=== PATIENT | female | born 1970 | race American Indian/Alaskan Native ===

== ENCOUNTER 2018-11-16 01:57 | Emergency (ER) | payer OTHER ==
[2018-11-16 02:04] VITALS: BP 170/99
[2018-11-16] MEDS ORDERED: IBUPROFEN PO ONE (08:15)
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
== END 2018-11-16 11:15 | disposition home or self-care (01) ==
LOC: ED 01:57
DX: M50.30 Other cervical disc degeneration, unspecified cervical region (principal); V89.2XXA Person injured in unspecified motor-vehicle accident, traffic, initial encounter; Y93.89 Activity, other specified; Y92.488 Other paved roadways as the place of occurrence of the external cause; Y99.8 Other external cause status
CPT/HCPCS: 72040; 72114; 99283

== ENCOUNTER 2020-08-01 23:16 | Emergency (ER) | payer BC, MEDICARE ==
[2020-08-02 05:16] VITALS: BP 161/80
--- NOTE | 2020-08-02 05:27 | Event Note ---
ED Screening Note Date of service: 08/02/20 Time: 05:26 ED Screening Note: Patient presents with complaints of intermittent chest pain and elevated blood pressure x6 days. 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 Further treatment and workup at subsequent clinical providers discretion. Patient/guardian urged not to elope from the ED as their condition may be serious if not clinically assessed and managed. Initial orders include: Chest pain work-up-EKG, chest x-ray, labs
[2020-08-02 06:10] LABS: Basophils % (Auto) 0.6 % (0.0-1.8); Eosinophils # (Auto) 0.4 K/mm3 (0.0-0.4); Eosinophils % (Auto) 9.5 % (0.0-4.3); Hematocrit 36.6 % (30.3-42.9); Hemoglobin 12.9 gm/dl (10.1-14.3); Lymphocytes # (Auto) 1.9 K/mm3 (1.2-5.4); Lymphocytes % (Auto) 45.2 % (13.4-35.0); Mean Corpuscular HGB Conc 35 % (30-34); Mean Corpuscular Volume 94 fl (79-97); Monocytes # (Auto) 0.4 K/mm3 (0.0-0.8); Monocytes % (Auto) 8.4 % (0.0-7.3); Platelet Count 233 K/mm3 (140-440); Red Cell Distribution Width 11.9 % (13.2-15.2)
--- NOTE | 2020-08-02 06:11 | XRay Report ---
CHEST 2 VIEWS, 08/02/2020 4:57 AM INDICATION: Chest pain COMPARISON: None FINDINGS: Support devices: None. Heart: The cardiac silhouette is normal in size. Lungs/pleura: The lungs are clear of focal airspace disease or significant pleural effusion. Additional findings: No significant acute abnormality. IMPRESSION: 1. No evidence of acute cardiopulmonary process. Signer Name: Angelica Hennessy MD Signed: 08/02/2020 6:07 AM Workstation Name: [id number]
[2020-08-02 06:30] LABS: Alanine Aminotransferase 12 units/L (7-56); Blood Urea Nitrogen 15 mg/dL (7-17); Calcium 9.3 mg/dL (8.4-10.2); Hemolysis Index 5
[2020-08-02 06:51] LABS: BUN/Creatinine Ratio 25
--- NOTE | 2020-08-02 07:27 | Emergency Department Report ---
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 She states that she was told she had a whole hallway of 30 patients alone, this made her upset, her blood pressure went up and her research project manager sent her to the ER. She denies headache, chest pain, shortness of breath. She is obese and perimenopausal. She states she has never been told that she had hypertension. Patient thinks that this is stress related and is requesting a work note. Patient takes no daily medications. Blood pressure slightly elevated in triage but when repeated by the time she got [facility] it had normalized. -: Sudden Worsens with: other Associated Symptoms: denies other symptoms Treatments Prior to Arrival: none - Related Data Previous Rx's Medication Instructions Recorded Last Taken Type Ibuprofen [Motrin 800 MG tab] 800 mg PO Q8HR PRN #15 tablet 11/16/18 Unknown Rx Allergies Allergy/AdvReac Type Severity Reaction Status Date / Time No Known Allergies Allergy Unverified 11/16/18 10:45 ED Review of Systems ROS: Stated complaint: BLOOD PRESSURE PROBLEM HEADACHE HAND TINGLING Other details as noted in HPI Comment: All other systems reviewed and negative ED Past Medical Hx - Past Medical History Previous Medical History?: No - Surgical History Past Surgical History?: Yes Additional Surgical History: Tubaligation - Family History Family history: no significant - Social History Smoking Status: Never Smoker Substance Use Type: None - Medications Home Medications: Home Medications Medication Instructions Recorded Confirmed Last Taken Type Ibuprofen [Motrin 800 MG tab] 800 mg PO Q8HR PRN #15 tablet 11/16/18 Unknown Rx ED Physical Exam - General Limitations: No Limitations General appearance: alert, in no apparent distress - Head Head exam: Present: atraumatic, normocephalic - Eye Eye exam: Present: normal appearance - ENT ENT exam: Present: mucous membranes moist - Neck Neck exam: Present: normal inspection - Respiratory Respiratory exam: Present: normal lung sounds bilaterally. Absent: respiratory distress - Cardiovascular Cardiovascular Exam: Present: regular rate, normal rhythm. Absent: systolic murmur, diastolic murmur, rubs, gallop - GI/Abdominal GI/Abdominal exam: Present: soft, normal bowel sounds - Extremities Exam Extremities exam: Present: normal inspection - Back Exam Back exam: Present: normal inspection - Neurological Exam Neurological exam: Present: alert, oriented X3 - Psychiatric Psychiatric exam: Present: normal affect, normal mood - Skin Skin exam: Present: warm, dry, intact, normal color. Absent: rash ED Course Vital Signs 08/01/20 08/02/20 23:26 05:10 Temperature 98.0 F Pulse Rate 86 66 Respiratory 18 17 Rate Blood Pressure 174/100 Blood Pressure 161/80 [Right] O2 Sat by Pulse 97 98 Oximetry ED Medical Decision Making - Lab Data Result diagrams: 08/02/20 05:29 08/02/20 05:29 - EKG Data EKG shows normal: sinus rhythm Rate: normal - EKG Data When compared to previous EKG there are: no significant change Interpretation: no acute changes - Radiology Data Radiology results: report reviewed, image reviewed No acute process - Medical Decision Making Vital Signs 08/01/20 08/02/20 23:26 05:10 Temperature 98.0 F Pulse Rate 86 66 Respiratory 18 17 Rate Blood Pressure 174/100 Blood Pressure 161/80 [Right] O2 Sat by Pulse 97 98 Oximetry Labs 08/02/20 08/02/20 05:29 05:29 WBC 4.2 L RBC 3.90 Hgb 12.9 Hct 36.6 MCV 94 MCH 33 H MCHC 35 H RDW 11.9 L Plt Count 233 Lymph % (Auto) 45.2 H [place] % (Auto) 8.4 H Eos % (Auto) 9.5 H Baso % (Auto) 0.6 Lymph # (Auto) 1.9 [place] # (Auto) 0.4 Eos # (Auto) 0.4 Baso # (Auto) 0.0 Seg Neutrophils % 36.3 L Seg Neutrophils # 1.5 L Sodium 139 Potassium 4.1 Chloride 103.3 Carbon Dioxide 28 Anion Gap 12 BUN 15 Creatinine 0.6 Estimated GFR > 60 BUN/Creatinine Ratio 25 Glucose 83 Calcium 9.3 Total Bilirubin 0.20 AST 13 ALT 12 Alkaline Phosphatase 74 Troponin T < 0.010 Total Protein 7.9 Albumin 4.0 Albumin/Globulin Ratio 1.0 Labs noted. Chest x-ray noted to be normal Twelve-lead EKG with no acute ST elevation or depression. Troponin normal. Blood pressure returned to normal with rest and no medications. Patient educated on the effects of weight, diet, activity and stress on her blood pressure. Patient has been educated on a blood pressure log with subsequent follow-up with a primary care doctor. Which she is given a referral to. Patient being discharged home with discharge instructions includingdiet, activity, hydration, stress and follow-up instructions. Patient verbalizes understanding of discharge plan of care. - Differential Diagnosis Concerns for hypertension Critical care attestation.: If time is entered above; I have spent that time in minutes in the direct care of this critically ill patient, excluding procedure time. ED Disposition Clinical Impression: Elevated blood pressure reading, Stress Disposition: DC-01 TO HOME OR SELFCARE Is pt being admited?: No Does the pt Need Aspirin: No Condition: Stable Instructions: Preventing Hypertension Additional Instructions: low salt diet drink plenty of water work on stress level keep bp log as we discussed follow up with pcp referral below ALL LABS NORMAL TODAY Referrals: JANICE NIELSEN MD [Staff Physician] - 3-5 Days Forms: Work/School Release Form(ED) Time of Disposition: 07:24
== END 2020-08-02 08:03 | disposition home or self-care (01) ==
LOC: ED 23:16
DX: R03.0 Elevated blood-pressure reading, without diagnosis of hypertension (principal); F43.9 Reaction to severe stress, unspecified; Z98.51 Tubal ligation status; Z79.1 Long term (current) use of non-steroidal anti-inflammatories (NSAID)
CPT/HCPCS: 36415; 71046; 80053; 84484; 85025; 93005

== ENCOUNTER 2021-11-24 19:07 | Emergency (ER) | payer SELFPAY ==
[2021-11-24 20:18] VITALS: BP 143/84
[2021-11-24] MEDS ORDERED: ACETAMINOPHEN 500 MG TAB PO ONE (21:15)
[2021-11-24] MEDS ORDERED: IBUPROFEN 600 MG TAB PO ONE (21:15)
--- NOTE | 2021-11-24 21:20 | Emergency Department Report ---
ED Fall HPI - General Chief Complaint: Fall Stated Complaint: SLIP/FALL AT WORKPLACE Source: patient Mode of arrival: Ambulatory - History of Present Illness Initial Comments: Patient is a 51-year-old -Citizen Of [place] female with a history of hypertension who presents to the ED with complaint of acute onset persistent right knee and ankle pain after she slipped on a wet floor at work and fell down twisting her right ankle and knee in the process. Patient states that the pain is especially worse with ambulation. Patient denies head or neck injuries, hip pain, back pain, chest pain or shortness of breath, numbness and tingling or weakness of upper and lower extremities bilaterally or loss of consciousness. MD Complaint: fall, other (Right knee and ankle pain) -: Sudden, hour(s) (3) Fall From: standing When Fall Occurred: 1-3 hours [employer] COMPTR[employer] Fall Witnessed: yes, by bystander, yes, by living facility s Place Fall Occurred: work Loss of Consciousness: none Prolonged Down Time?: no Symptoms Prior to Fall: none Location: other (Right knee and ankle pain) Location - Extremities: Right: Knee (Right knee pain), Ankle (Right ankle pain) Severity: moderate Severity scale (0 -10): 6 Quality: sharp, aching Context: tripped/slipped Associated Symptoms: denies. denies: headache, neck pain, numbness, weakness, chest paint, shortness of breath, abdominal pain, hematuria, unable to walk, lightheaded, vertigo, confusion - Related Data Previous Rx's Medication Instructions Recorded Last Taken Type Ibuprofen [Motrin 800 MG tab] 800 mg PO Q8HR PRN #15 tablet 11/16/18 Unknown Rx Ibuprofen [Motrin] 800 mg PO Q8HR PRN #30 tablet 11/24/21 Unknown Rx Allergies Allergy/AdvReac Type Severity Reaction Status Date / Time No Known Allergies Allergy Verified 11/24/21 20:18 ED Review of Systems ROS: Stated complaint: SLIP/FALL AT WORKPLACE Other details as noted in HPI Constitutional: denies: chills, fever Eyes: denies: eye pain, eye discharge, vision change ENT: denies: ear pain, throat pain Respiratory: denies: cough, shortness of breath, wheezing Cardiovascular: denies: chest pain, palpitations Endocrine: no symptoms reported Gastrointestinal: denies: abdominal pain, nausea, diarrhea Genitourinary: denies: urgency, dysuria, discharge Musculoskeletal: arthralgia (Right knee and ankle pain). denies: back pain, joint swelling Skin: denies: rash, lesions Neurological: denies: headache, weakness, paresthesias Psychiatric: denies: anxiety, depression Hematological/Lymphatic: denies: easy bleeding, easy bruising ED Past Medical Hx - Past Medical History Previous Medical History?: Yes Hx Hypertension: Yes - Surgical History Past Surgical History?: No Additional Surgical History: Tubaligation - Social History Smoking Status: Never Smoker Substance Use Type: None - Medications Home Medications: Home Medications Medication Instructions Recorded Confirmed Last Taken Type Ibuprofen [Motrin 800 MG tab] 800 mg PO Q8HR PRN #15 tablet 11/16/18 Unknown Rx Ibuprofen [Motrin] 800 mg PO Q8HR PRN #30 tablet 11/24/21 Unknown Rx ED Physical Exam - General Limitations: No Limitations General appearance: alert, in no apparent distress - Head Head exam: Present: atraumatic, normocephalic, normal inspection - Eye Eye exam: Present: normal appearance, PERRL, EOMI Pupils: Present: normal accommodation - ENT ENT exam: Present: normal exam, normal orophraynx, mucous membranes moist, TM's normal bilaterally, normal external ear exam - Neck Neck exam: Present: normal inspection, full ROM. Absent: tenderness - Respiratory Respiratory exam: Present: normal lung sounds bilaterally. Absent: respiratory distress, wheezes, rales, rhonchi, stridor, chest wall tenderness, accessory muscle use, prolonged expiratory - Cardiovascular Cardiovascular Exam: Present: regular rate, normal rhythm, normal heart sounds. Absent: systolic murmur, diastolic murmur, rubs, gallop - GI/Abdominal GI/Abdominal exam: Present: soft, normal bowel sounds. Absent: tenderness, guarding, rebound, hyperactive bowel sounds, hypoactive bowel sounds - Extremities Exam Extremities exam: Present: normal inspection, full ROM, tenderness (Palpable right knee and ankle tenderness), normal capillary refill. Absent: joint swelling, calf tenderness - Back Exam Back exam: Present: normal inspection, full ROM. Absent: tenderness, CVA tenderness (R), CVA tenderness (L), muscle spasm, paraspinal tenderness, vertebral tenderness - Neurological Exam Neurological exam: Present: alert, oriented X3, CN II-XII intact, normal gait, reflexes normal - Psychiatric Psychiatric exam: Present: normal affect, normal mood - Skin Skin exam: Present: warm, dry, intact, normal color. Absent: rash ED Course Vital Signs 11/24/21 11/24/21 20:11 21:38 Temperature 97.8 F Pulse Rate 60 Respiratory 12 16 Rate Blood Pressure 143/84 [Right] O2 Sat by Pulse 100 Oximetry ED Medical Decision Making - Radiology Data Radiology results: report reviewed, image reviewed [facility] [address] [place] [address] XRay Report Signed Patient: JARED SUE MR#: [id number] : 1970 Acct:[id number] Age/Sex: 51 / F ADM Date: 11/24/21 Loc: ED Attending Dr: Ordering Physician: GIL BRAND Date of Service: 11/24/21 Procedure(s): XR knee 3V RT Accession Number(s): [id number] cc: GIL BRAND Fluoro Time In Minutes: Right knee, 3 views HISTORY: Fall COMPARISON: None FINDINGS: Corticated ossific density at the superolateral aspect of the patella, 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 There is suggestion of pseudarthrosis. No acute fracture is identified. No joint effusion. Signer Name: Sherrie Garduno MD Signed: 11/24/2021 9:42 PM Workstation Name: [id number] Transcribed By: XAVIER Dictated By: SHERRIE GARDUNO MD Electronically Authenticated By: SHERRIE GARDUNO MD Signed Date/Time: 11/24/212141 DD/ 40 TD/TT: [facility] [address] [place] [address] XRay Report Signed Patient: JARED SUE MR#: [id number] : 1970 Acct:[id number] Age/Sex: 51 / F ADM Date: 11/24/21 Loc: ED Attending Dr: Ordering Physician: GIL BRAND Date of Service: 11/24/21 Procedure(s): XR ankle 3+V RT Accession Number(s): [id number] cc: GIL BRAND Fluoro Time In Minutes: Right ankle, 3 views HISTORY: Fall COMPARISON: None FINDINGS: No acute fracture or malalignment. Ankle mortise is symmetric. Talar dome is intact. No focal soft tissue abnormality. IMPRESSION: 1. No acute findings. Signer Name: Sherrie Garduno MD Signed: 11/24/2021 9:43 PM Workstation Name: [id number] Transcribed By: XAVIER Dictated By: SHERRIE GARDUNO MD Electronically Authenticated By: SHERRIE GARDUNO MD Signed Date/Time: 11/24/212142 DD/ 41 TD/TT: - Medical Decision Making This is a 51-year-old -Citizen Of [place] female with a history of hypertension who presents to the ED with complaint of acute onset persistent right knee and ankle pain after she slipped on a wet floor at work and fell down twisting her right ankle and knee in the process. Patient states that the pain is especially worse with ambulation. In the ED, patient is alert and oriented x3 and is not in any distress. Patient was treated for pain in the ED. Right knee x-ray showed no acute fractures or subluxations. Right ankle x-ray also showed no acute fractures and subluxations. On reevaluation, patient's pain is well controlled medication. Patient will discharge home on pain medications and advised to follow-up with her primary care physician in 7 to 10 days for reevaluation. Patient was advised return to the ED immediately if symptoms get worse. - Differential Diagnosis Ankle sprain; knee sprain; knee contusion; knee fracture; ankle fracture Critical care attestation.: If time is entered above; I have spent that time in minutes in the direct care of this critically ill patient, excluding procedure time. ED Disposition Clinical Impression: Right ankle sprain Qualifiers: Encounter type: initial encounter Involved ligament of ankle: unspecified ligament Qualified Code(s): S93.401A - Sprain of unspecified ligament of right ankle, initial encounter Sprain of right knee Qualifiers: Encounter type: initial encounter Involved ligament of knee: unspecified ligament Qualified Code(s): S83.91XA - Sprain of unspecified site of right knee, initial encounter Disposition: HOME / SELF CARE / HOMELESS Is pt being admited?: No Does the pt Need Aspirin: No Condition: Stable Instructions: Ankle Sprain, [id number], Knee Sprain, Adult, [id number] Additional Instructions: The right knee and right ankle x-rays showed no acute fractures or subluxations. Your injuries are likely musculoskeletal following the fall injury. Therefore take medication with food, drink plenty of fluids and follow-up with your primary care physician in 7 to 10 days for reevaluation. Return to the ED immediately if symptoms get worse. Prescriptions: Ibuprofen [Motrin] 800 mg PO Q8HR PRN #30 tablet PRN Reason: Pain , Severe (7-10) Referrals: [facility] [Provider Group] - 7-10 days Time of Disposition: 21:20 Print Language: SLOVENIAN
--- NOTE | 2021-11-24 21:47 | XRay Report ---
Right ankle, 3 views HISTORY: Fall COMPARISON: None FINDINGS: No acute fracture or malalignment. Ankle mortise is symmetric. Talar dome is intact. No foc al soft tissue abnormality. IMPRESSION: 1. No acute findings. Signer Name: Mt Tucker MD Signed: 11/24/2021 9:43 PM Workstation Name: [id number]
--- NOTE | 2021-11-24 21:47 | XRay Report ---
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 There is suggestion of pseudarthrosis. No acute fracture is identified. No joint eff usion. Signer Name: Mt Tucker MD Signed: 11/24/2021 9:42 PM Workstation Name: [id number]
== END 2021-11-25 03:14 | disposition home or self-care (01) ==
LOC: ED 19:07
DX: S93.401A Sprain of unspecified ligament of right ankle, initial encounter (principal); S83.91XA Sprain of unspecified site of right knee, initial encounter; I10 Essential (primary) hypertension; W19.XXXA Unspecified fall, initial encounter; Y93.89 Activity, other specified; Y92.89 Other specified places as the place of occurrence of the external cause; Y99.8 Other external cause status
CPT/HCPCS: 99283